=== PATIENT | male | born 1980 | race Caucasian/White ===

== ENCOUNTER 2019-02-24 21:49 | Emergency (ER) | payer OTHER ==
[2019-02-24 21:54] VITALS: BP 113/76; PULSE 93; TEMP 99.8; BMI 26.5
[2019-02-24] MEDS ORDERED: DIPHTH,PERTUSS(ACELL),TET 0.5 ML DISP.SYRIN IM ONE ×2 (22:21→22:23)
--- NOTE | 2019-02-24 22:23 | PDOC ---
History of Present Illness - General Chief Complaint: Injury Stated Complaint: LAC/RIGHT EYE Time Seen by Provider: 02/24/19 22:19 - History of Present Illness Initial Comments: 02/24/19 22:20 Old male without comorbidities presents for evaluation of right-sided facial trauma after being elbowed above his eye while playing basketball. No loss of consciousness, post injury nausea, vomiting, visual changes. He does have right eye swelling. He is unsure of his current tetanus status. Past History - Past Medical History Allergies/Adverse Reactions: Allergies Allergy/AdvReac Type Severity Reaction Status Date / Time No Known Allergies Allergy Verified 02/24/19 21:51 COPD: No - Psycho Social/Smoking Cessation Hx Smoking History: Never smoked Have you smoked in the past 12 months: No Hx Alcohol Use: Yes Drug/Substance Use Hx: No Review of Systems - Review of Systems HEENTM: Yes: See HPI *Physical Exam - Vital Signs Last Vital Signs Temp Pulse Resp BP Pulse Ox 99.8 F H 93 H 18 113/76 100 02/24/19 21:51 02/24/19 21:51 02/24/19 21:51 02/24/19 21:51 02/24/19 21:51 - Physical Exam Comments: 02/24/19 22:21 GENERAL: The patient is awake, alert, and fully oriented, in no acute distress. HEAD: Normal with no signs of trauma. EYES: sclera anicteric, conjunctiva clear; there is 1 cm laceration on the right eyelid external ocular muscles are intact pupils equal round and reactive. Conjunctive are clear ENT: Ears normal NECK: Normal range of motion EXTREMITIES: Normal range of motion, no edema. No clubbing or cyanosis. No cords, erythema, or tenderness. NEUROLOGICAL: Cranial nerves II through XII grossly intact. Normal speech, normal gait. PSYCH: Normal mood, normal affect. SKIN: Warm, Dry, normal turgor, no rashes or lesions noted. ED Treatment Course - RADIOLOGY Radiology Studies Ordered: Category Date Time Status FACIAL BONES CT W/O CONTRAST [CT] Stat CT Scan 02/24/19 22:19 Ordered Medical Decision Making - Medical Decision Making 02/24/19 22:22 The wound was anesthetized with 1% lidocaine without epinephrine. Explored to its base in a bloodless field without any identification of foreign body. Copiously irrigated with normal saline. Edges approximated using 6-0 nylon 4 simple interrupted sutures. 02/24/19 23:05 CAT scan reviewed periorbital hematoma discussed use of ice Tylenol and Motrin follow-up with PCP sutures out in 7*-10 days Discharge - Discharge Information Problems reviewed: Yes Clinical Impression/Diagnosis: Contusion of face Condition: Stable Disposition: HOME - Admission No - Follow up/Referral - Patient Discharge Instructions Additional Instructions: Sutures out no less than 7 days. Return to the emergency room for worsening symptoms. Keep the area clean and dry for 48 hours. After 48 hours your pain wash the area gently with soap and water and pat it dry and leave it open to air. Follow-up with your primary care physician in 1 to 2 days for further evaluation and treatment options. Sooner to the emergency room should problems develop. Tylenol Motrin as directed for pain. Ice 10 minutes on 20 minutes off multiple times a day for swelling. - Post Discharge Activity
== END 2019-02-24 23:11 | disposition home or self-care (01) ==
LOC: JERFT 21:49
PROC: 0HQ1XZZ Repair Face Skin, External Approach (ICD-10-PCS; principal; 2019-02-24)
PROC: 3E0234Z Introduction of Serum, Toxoid and Vaccine into Muscle, Percutaneous Approach (ICD-10-PCS; 2019-02-24)
DX: S01.111A Laceration without foreign body of right eyelid and periocular area, initial encounter (principal); W50.0XXA Accidental hit or strike by another person, initial encounter; Y93.67 Activity, basketball; Y92.310 Basketball court as the place of occurrence of the external cause
CPT/HCPCS: 70486-TC; 90715; 99281-25

== ENCOUNTER 2019-03-03 09:41 | Emergency (ER) | payer OTHER ==
[2019-03-03 09:48] VITALS: BP 123/74; PULSE 70; TEMP 98.2; BMI 25.5
--- NOTE | 2019-03-03 10:41 | PDOC ---
Suture Removal/Wound Check HPI - History of Present Illness Chief Complaint: Suture/Staple Removal(Here) Stated Complaint: REMOVAL OF STITCHES Time Seen by Provider: 03/03/19 10:27 History Source: Yes: Patient Exam Limitations: Yes: No Limitations Past History - Past Medical History Allergies/Adverse Reactions: Allergies Allergy/AdvReac Type Severity Reaction Status Date / Time No Known Allergies Allergy Verified 03/03/19 09:48 COPD: No - Psycho Social/Smoking Cessation Hx Smoking History: Never smoked Have you smoked in the past 12 months: No Information on smoking cessation initiated: No Hx Alcohol Use: No Drug/Substance Use Hx: No Suture Removal/Wound Check PE - Physical Exam Laceration/Wound Check Symptoms: reports: None, Resolved. denies: Pain, Fever, Chills, Redness, Discharge, Bleeding Location of Laceration/Wound: right: Eye (Lac above R eye healed) *Physical Exam - Vital Signs Last Vital Signs Temp Pulse Resp BP Pulse Ox 98.2 F 70 17 123/74 100 03/03/19 09:46 03/03/19 09:46 03/03/19 09:46 03/03/19 09:46 03/03/19 09:46 Medical Decision Making - Medical Decision Making 38 y/o M presents with suture removal for lac repaired above R eye last week. Denies fever, drainage, redness Lac healed 4 sutures removed stable for dc 03/03/19 10:40 Discharge - Discharge Information Problems reviewed: Yes Clinical Impression/Diagnosis: Visit for suture removal Condition: Stable Disposition: HOME - Admission No - Additional Discharge Information Prescription Drug Monitoring Program (I-STOP) results: I-STOP not reviewed - Follow up/Referral - Patient Discharge Instructions Patient Printed Discharge Instructions: DI for Suture Removal - Post Discharge Activity
== END 2019-03-03 10:44 | disposition home or self-care (01) ==
LOC: JERFT 09:41
DX: Z48.02 Encounter for removal of sutures (principal)
CPT/HCPCS: 99281-25